=== PATIENT | male | born 1955 | race Caucasian/White ===

== ENCOUNTER 2019-08-22 07:32 | Outpatient (RCR) | payer MEDICARE, MEDICAID, SELFPAY | END 2019-08-25 23:59 | disposition home or self-care (01) | LOC: ANHWOC 07:32 | PROVIDERS: PCP Internal Medicine; Visit Provider Internal Medicine | DX: Z43.3 Encounter for attention to colostomy (principal) | CPT/HCPCS: 99212; G0463 ==

== ENCOUNTER 2019-10-21 13:40 | Emergency (ER) | payer MEDICARE, MEDICAID, SELFPAY ==
--- NOTE | ~2019-10-21 | XR_ITS ---
EXAMINATION: XR abdomen/kub 1V INDICATION: Constipation TECHNIQUE: Supine view the abdomen is obtained. COMPARISON: 02/16/2019 FINDINGS: There are multiple gas-filled loops of nondistended bowel. There is a normal volume of colo alison stool. Phleboliths are noted in the pelvis. There are prostatic calcifications. Mild hip osteoart hritis is noted. IMPRESSION: 1. Normal volume of colonic stool. Reviewed, dictated and finalized at location B.
[2019-10-21 14:04] VITALS: BP 129/77; PULSE 80; RESP 18; TEMP 36.5; O2SAT 100
[2019-10-21 14:13] LABS: Basophils Percent Auto 0.3 % (0.2-1.2); Eosinophils Absolute Auto 0.1 K/mm3 (0-0.3); Eosinophils Percent Auto 0.7 % (0-4.4); Hematocrit 38.7 % (42.0-52.0); Hemoglobin 13.1 g/dL (14.0-18.0); Immature Granulocyte Absolute 0.02 K/mm3 (0.00-0.031); Immature Granulocyte Percent A 0.3 % (0-0.5); Lymphocytes Percent Auto 21.6 % (18.3-44.2); Mean Corpuscular HGB Conc 33.9 g/dl (32-36); Mean Corpuscular Hemoglobin 30.5 pg (26-34); Mean Platelet Volume 9.7 fl (7.4-10.4); Monocytes Absolute Auto 0.6 K/mm3 (0.1-0.6); Monocytes Percent Auto 8.1 % (2.6-8.5); Neutrophils Absolute Auto 4.8 K/mm3 (1.3-6.7); Platelet Count Result 291 k/mm3 (150-375); White Blood Count 6.9 K/mm3 (4.5-10.0)
[2019-10-21 14:25] LABS: Alanine Aminotransferase 17 U/L (4-50); Albumin Level 4.3 g/dL (3.5-5.1); Alkaline Phosphatase 112 U/L (38-126); Aspartate Amino Transferase 30 U/L (17-59); Bilirubin,Total 0.4 mg/dL (0.2-1.3); Blood Urea Nitrogen 12 mg/dL (9-20); Calcium 9.3 mg/dL (8.4-10.2); Carbon Dioxide 30 mmol/L (22-30); Chloride 104 mmol/L (98-107); Estimated Glomerular Filt Rate > 60; Glucose 101 mg/dL (75-110); Lipase 51 U/L (23-300); Potassium 3.6 mmol/L (3.4-5.0); Sodium 138 mmol/L (137-145)
[2019-10-21 14:48] LABS: Add Urine Microscopic? YES; Appearance Urine Clear (Clear); Bilirubin Urine Negative (Negative); Blood Urine Negative (Negative); Calcium Oxalate Crystals Urine Present /hpf; Color Urine Yellow (Yellow); Glucose Urine UA Negative (Negative); Ketones Urine Negative (Negative); Leukocyte Esterase Ur Negative LEU/UL (Negative); Mucus Urine Heavy /lpf; Nitrate Urine Negative (Negative); Protein Urine 1+ mg/dL (Negative); Specific Grav Ur 1.027 (1.001-1.035); Squamous Epithelial Cell Urine Rare /hpf (Few); Urobilinogen Urine Negative mg/dL (<2.0); WBC Urine 0-3 /hpf
[2019-10-21 16:17] VITALS: BP 141/98; PULSE 72; RESP 17; O2SAT 97
--- NOTE | 2019-10-21 16:19 | ED.ABDPAIN ---
HPI - Abdominal Pain General Chief Complaint: Abdominal Pain Stated Complaint: abdominal pain/vomiting/constipated Time Seen by Provider: 10/21/19 15:56 Source: patient Mode of arrival: ambulatory Limitations: other (poor historian) History of Present Illness HPI narrative: This is a 64 year old male that presents to the ER for constipation today. Reports he was seen by the ostomy/wound center today and was having hard rocks come out of his ostomy. Reports having some nausea at night. Denies fever, abdominal pain, or vomiting. Related Data Home Medications Medication Instructions Recorded Confirmed fluoxetine 20 mg PO DAILY 05/20/19 07/12/19 tamsulosin [Flomax] 0.4 mg PO DAILY 05/20/19 07/12/19 cyanocobalamin (vitamin B-12) See Rx Instructions .ROUTE .COMPLEX 07/12/19 07/12/19 1,000 mcg/mL injection syringe lorazepam 1 mg tablet 1 mg PO DAILY PRN tablet 07/12/19 07/12/19 simvastatin 10 mg tablet 10 mg PO .hs tablet 07/12/19 07/12/19 Allergies Allergy/AdvReac Type Severity Reaction Status Date / Time Penicillins Allergy Unknown Verified 01/11/18 16:11 Review of Systems Review of Systems: Narrative: CONSTITUTIONAL: Denies fever GASTROINTESTINAL: Denies abdominal pain, nausea, vomiting All systems reviewed & are unremarkable except as noted in HPI and below PMFSH Past Medical History Medical History (Updated 10/21/19 @ 16:28 by Alem Huitron PA-C) Anemia B12 deficiency Carpal tunnel syndrome Colostomy present Hypercholesterolemia Tongue ulceration Vitamin deficiency Surgical History Surgical History (Updated 07/12/19 @ 16:06 by Loc Graham DO) Status post colostomy Family History Family History (Updated 01/12/18 @ 14:59 by DOCTOR UNKNOWN) Father Family history of premature coronary heart disease Mother Cerebrovascular accident Social History Social History Smoking status: Never smoker Alcohol intake: never Exam Narrative: Exam Narrative: GENERAL: Well-appearing, well-nourished, and in no acute distress. HEAD: Normocephalic, atraumatic. EYES: EOMI. CHEST: Clear to auscultation. No respiratory distress. No wheezes rales or rhonchi HEART: Regular rate and rhythm. No murmur heard. Normal peripheral pulses. ABDOMEN: Soft, nontender, nondistended, normal active bowel sounds. Ostomy moist, oval and red. No surrounding skin changes to suggest cellulitis. No output in ostomy at present EXTREMITIES: Normal range of motion. No edema. SKIN: Warm, dry, no rash. NEURO: No focal deficits. Alert and oriented x3. PSYCH: Normal mood and affect Course Vital Signs Vital signs: Vital Signs Temperature 97.7 F 10/21/19 14:04 Pulse Rate 80 10/21/19 14:04 Respiratory Rate 18 10/21/19 14:04 Blood Pressure 129/77 10/21/19 14:04 Pulse Oximetry 100 10/21/19 14:04 Temperature 97.7 F 10/21/19 14:04 Pulse Rate 72 10/21/19 16:17 Respiratory Rate 17 10/21/19 16:17 Blood Pressure 141/98 H 10/21/19 16:17 Pulse Oximetry 97 10/21/19 16:17 MDM - Abdominal Pain MDM Narrative Medical decision making narrative: Patient presents the emergency department for constipation. He has a history of colostomy and was having hard stools. Patient is afebrile and nontoxic-appearing. His abdomen is soft and nontender. No leukocytosis on CBC. Metabolic panel without acute changes. X-ray of the abdomen shows a normal volume of colonic stool. Patient was instructed to take a stool softener daily and if needed he can add on MiraLAX. He is to follow-up with his primary care doctor. He was given warnings to return the ER Lab Data Attestation: I reviewed the patient's lab results. Result diagrams: 10/21/19 14:08 10/21/19 14:08 Labs: Lab Results 10/21/19 10/21/19 10/21/19 Range/Units 14:08 14:08 14:24 WBC 6.9 (4.5-10.0) K/mm3 RBC 4.30 L (4.6-6.20) M/mm3 Hgb 13.1 L (14.0-18.0) g/dL Hct 38.7 L (42.0-52.0) %
== END 2019-10-21 16:45 | disposition home or self-care (01) ==
LOC: ANHED 16:38
PROVIDERS: Emergency Medicine; Emergency Provider Emergency Medicine; PCP Internal Medicine
DX: K59.00 Constipation, unspecified (principal); E78.00 Pure hypercholesterolemia, unspecified; E53.8 Deficiency of other specified B group vitamins; Z93.3 Colostomy status; D64.9 Anemia, unspecified
CPT/HCPCS: 36415; 74018; 80053; 81001; 83690; 85025; 99212; 99283; G0463

== ENCOUNTER 2019-11-21 07:19 | Outpatient (RCR) | payer MEDICARE, MEDICAID, SELFPAY | END 2019-11-24 23:59 | disposition home or self-care (01) | LOC: ANHWOC 07:19 | PROVIDERS: PCP Internal Medicine; Referring Provider Surgery; Visit Provider Internal Medicine | DX: Z93.3 Colostomy status (principal) | CPT/HCPCS: 99212; G0463 ==

== ENCOUNTER 2020-02-20 07:15 | Outpatient (RCR) | payer MEDICARE, MEDICAID, SELFPAY | END 2020-02-23 23:59 | disposition home or self-care (01) | LOC: ANHWOC 07:15 | PROVIDERS: PCP Internal Medicine; Visit Provider Internal Medicine | DX: Z93.3 Colostomy status (principal) | CPT/HCPCS: 99212; G0463 ==

== ENCOUNTER 2020-02-24 13:37 | Outpatient (CLI) | payer MEDICARE, MEDICAID, SELFPAY ==
--- NOTE | ~2020-02-24 | XR_ITS ---
EXAMINATION: XR shoulder LT min 2V DATE: 02/24/2020 13:58 INDICATION: Localized swelling, mass and lump, left upper limb. TECHNIQUE: 5 views of left shoulder were obtained. COMPARISON: None. FINDINGS: Bone alignment is normal. No fracture. There is mild osteoarthritis of glenohumeral joint a nd moderate osteoarthritis of acromioclavicular joint. Subacromial spurring is noted. IMPRESSION: 1. Polyarticular osteoarthritis. Reviewed, dictated and finalized at location A.
== END 2020-02-24 13:38 | disposition home or self-care (01) ==
PROVIDERS: PCP Internal Medicine; Visit Provider Internal Medicine
DX: R22.32 Localized swelling, mass and lump, left upper limb (principal); M19.012 Primary osteoarthritis, left shoulder
CPT/HCPCS: 73030

== ENCOUNTER 2020-05-21 07:37 | Outpatient (RCR) | payer MEDICARE, MEDICAID, SELFPAY | END 2020-05-24 23:59 | disposition home or self-care (01) | LOC: ANHWOC 07:37 | PROVIDERS: PCP Internal Medicine; Visit Provider Internal Medicine | DX: Z43.3 Encounter for attention to colostomy (principal) | CPT/HCPCS: 99212; G0463 ==

== ENCOUNTER 2020-08-20 07:34 | Outpatient (RCR) | payer MEDICARE, MEDICAID, SELFPAY | END 2020-08-23 23:59 | disposition home or self-care (01) | LOC: ANHWOC 07:34 | PROVIDERS: PCP Internal Medicine; Visit Provider Internal Medicine | DX: Z43.3 Encounter for attention to colostomy (principal) | CPT/HCPCS: 99212; G0463 ==

== ENCOUNTER 2020-11-19 07:31 | Outpatient (RCR) | payer MEDICARE, MEDICAID, SELFPAY | END 2020-11-22 23:59 | disposition home or self-care (01) | LOC: ANHWOC 07:31 | PROVIDERS: Family Provider Internal Medicine; PCP Internal Medicine; Visit Provider Internal Medicine | DX: Z43.3 Encounter for attention to colostomy (principal) | CPT/HCPCS: 99212; G0463 ==

== ENCOUNTER 2021-02-18 07:25 | Outpatient (RCR) | payer MEDICARE, MEDICAID, SELFPAY | END 2021-02-21 23:59 | disposition home or self-care (01) | LOC: ANHWOC 07:25 | PROVIDERS: Family Provider Internal Medicine; PCP Internal Medicine; Visit Provider Internal Medicine | DX: Z43.3 Encounter for attention to colostomy (principal) | CPT/HCPCS: 99212; G0463 ==

== ENCOUNTER 2021-05-20 07:29 | Outpatient (RCR) | payer MEDICARE, OTHER, MEDICAID, SELFPAY ==
--- NOTE | 2021-04-29 13:25 | PCWOUND ---
Wocn NOte placed call to sister and brother in law to verify plans to acquire future supplies and to let them know [facility] is discontinuing the current supplies patient prefers.
== END 2021-05-23 23:59 | disposition home or self-care (01) ==
LOC: ANHWOC 07:29
PROVIDERS: Family Provider Internal Medicine; PCP Internal Medicine; Visit Provider Internal Medicine
DX: Z43.3 Encounter for attention to colostomy (principal)
CPT/HCPCS: 99212; G0463

== ENCOUNTER 2021-08-19 07:45 | Outpatient (RCR) | payer OTHER, SELFPAY | END 2021-08-22 23:59 | disposition home or self-care (01) | LOC: ANHWOC 07:45 | PROVIDERS: Family Provider Internal Medicine; PCP Internal Medicine; Visit Provider Internal Medicine | DX: Z43.3 Encounter for attention to colostomy (principal) | CPT/HCPCS: 99212; G0463 ==

== ENCOUNTER 2021-11-18 07:35 | Outpatient (RCR) | payer OTHER, SELFPAY | END 2021-11-21 23:59 | disposition home or self-care (01) | LOC: ANHWOC 07:35 | PROVIDERS: Family Provider Internal Medicine; PCP Internal Medicine; Visit Provider Internal Medicine | DX: Z43.3 Encounter for attention to colostomy (principal) | CPT/HCPCS: 99212; G0463 ==

== ENCOUNTER 2022-02-17 13:00 | Outpatient (RCR) | payer OTHER, SELFPAY | END 2022-02-20 23:59 | disposition home or self-care (01) | LOC: ANHWOC 13:00 | PROVIDERS: Family Provider Internal Medicine; PCP Internal Medicine; Visit Provider Internal Medicine | DX: Z43.3 Encounter for attention to colostomy (principal) | CPT/HCPCS: 99212; G0463 ==

== ENCOUNTER 2022-02-18 14:11 | Outpatient (CLI) | payer OTHER, SELFPAY ==
[2022-02-18 18:40] LABS: Basophils Percent Auto 0.4 % (0.2-1.2); Eosinophils Absolute Auto 0.1 K/mm3 (0-0.3); Eosinophils Percent Auto 0.9 % (0-4.4); Hematocrit 42.2 % (42.0-52.0); Hemoglobin 13.8 g/dL (14.0-18.0); Immature Granulocyte Absolute 0.02 K/mm3 (0.00-0.031); Immature Granulocyte Percent A 0.3 % (0-0.5); Lymphocytes Absolute Auto 1.64 K/mm3 (0.9-3.2); Lymphocytes Percent Auto 23.3 % (18.3-44.2); Mean Corpuscular HGB Conc 32.7 g/dl (32-36); Mean Corpuscular Hemoglobin 29.7 pg (26-34); Mean Corpuscular Volume 90.9 fl (80-100); Mean Platelet Volume 9.9 fl (7.4-10.4); Monocytes Absolute Auto 0.7 K/mm3 (0.1-0.6); Monocytes Percent Auto 9.7 % (2.6-8.5); Neutrophils Absolute Auto 4.6 K/mm3 (1.3-6.7); Neutrophils Percent Auto 65.4 % (45.5-73.1); Platelet Count Result 317 k/mm3 (150-375); Red Blood Count 4.64 M/mm3 (4.6-6.20); Red Cell Distribution Width 13.3 % (11.5-14.5)
[2022-02-18 21:13] LABS: Alanine Aminotransferase 14 U/L (6-50); Albumin Level 4.1 g/dL (3.5-5.1); Alkaline Phosphatase 151 U/L (38-126); Anion Gap 14 mmol/L (8-16); Aspartate Amino Transferase 22 U/L (17-59); Bilirubin,Total 0.4 mg/dL (0.2-1.3); Blood Urea Nitrogen 16 mg/dL (9-20); Calcium 9.2 mg/dL (8.4-10.2); Carbon Dioxide 23 mmol/L (22-30); Chloride 105 mmol/L (98-107); Cholesterol 200 mg/dL (0-200); Estimated Glomerular Filt Rate > 60; Glucose 98 mg/dL (65-110); HDL Direct 55 mg/dL; Potassium 3.7 mmol/L (3.4-5.0); Sodium 142 mmol/L (137-145); Triglycerides 72 mg/dL (<150)
[2022-02-18 21:24] LABS: LDL Cholesterol Direct 111 mg/dL
[2022-02-18 21:43] LABS: Prostate Specific Antigen 0.3 ng/mL (< OR = 4.0)
[2022-02-18 22:22] LABS: Folic Acid 9.5 ng/mL (2.76->20); Vitamin B12 > 1000.0 pg/mL (239-931)
== END 2022-02-18 14:12 | disposition home or self-care (01) ==
LOC: ANHGOSHLAB 14:12
PROVIDERS: PCP Internal Medicine; Visit Provider Internal Medicine
DX: Z12.5 Encounter for screening for malignant neoplasm of prostate (principal); D64.9 Anemia, unspecified; E53.8 Deficiency of other specified B group vitamins; E78.00 Pure hypercholesterolemia, unspecified; Z13.29 Encounter for screening for other suspected endocrine disorder; Z13.0 Encounter for screening for diseases of the blood and blood-forming organs and certain disorders involving the immune mechanism; Z13.228 Encounter for screening for other metabolic disorders; F41.9 Anxiety disorder, unspecified
CPT/HCPCS: 36415; 80053; 80061; 82607; 82728; 82746; 84153; 84443; 85025; G0103

== ENCOUNTER 2022-03-27 13:33 | Outpatient (CLI) | payer OTHER, SELFPAY ==
[2022-03-27 19:35] LABS: Basophils Percent Auto 0.4 % (0.2-1.2); Eosinophils Absolute Auto 0.1 K/mm3 (0-0.3); Eosinophils Percent Auto 1.8 % (0-4.4); Hematocrit 42.3 % (42.0-52.0); Hemoglobin 14.2 g/dL (14.0-18.0); Immature Granulocyte Absolute 0.03 K/mm3 (0.00-0.031); Immature Granulocyte Percent A 0.4 % (0-0.5); Lymphocytes Absolute Auto 1.58 K/mm3 (0.9-3.2); Lymphocytes Percent Auto 21.6 % (18.3-44.2); Mean Corpuscular HGB Conc 33.6 g/dl (32-36); Mean Corpuscular Volume 89.2 fl (80-100); Mean Platelet Volume 9.7 fl (7.4-10.4); Monocytes Absolute Auto 0.7 K/mm3 (0.1-0.6); Monocytes Percent Auto 8.9 % (2.6-8.5); Neutrophils Absolute Auto 4.9 K/mm3 (1.3-6.7); Neutrophils Percent Auto 66.9 % (45.5-73.1); Platelet Count Result 340 k/mm3 (150-375); Red Blood Count 4.74 M/mm3 (4.6-6.20); Red Cell Distribution Width 13.5 % (11.5-14.5); White Blood Count 7.3 K/mm3 (4.5-10.0)
[2022-03-29 17:32] LABS: GGT 24 U/L (3-70)
[2022-03-30 04:59] LABS: Alkaline Phosphatase 160 U/L (35-144); Macrohepatic Isoenzymes 0 % (<=0)
== END 2022-03-27 13:34 | disposition home or self-care (01) ==
LOC: ANHGOSHLAB 13:35
PROVIDERS: PCP Internal Medicine; Visit Provider Internal Medicine
DX: R74.8 Abnormal levels of other serum enzymes (principal); D64.9 Anemia, unspecified
CPT/HCPCS: 36415; 82728; 82977; 84075; 84080; 85025

== ENCOUNTER 2022-04-10 11:09 | Outpatient (CLI) | payer OTHER, SELFPAY ==
--- NOTE | ~2022-04-10 | US_ITS ---
EXAMINATION: US abdomen limited DATE: 04/10/2022 11:51 INDICATION: Abnormal levels of other serum enzymes TECHNIQUE: Multiple grayscale and Doppler ultrasound images of the abdomen were obtained. COMPARISON: None available FINDINGS: Bowel gas obscures visualization of the pancreas. The liver is normal with normal echogenic ity and echotexture. No surface nodularity. Normal hepatopetal flow in the main portal vein. The gall bladder is normal with no abnormal wall thickening, pericholecystic fluid or stones. The normal commo n bile duct measures 4 mm. There was no sonographic Chacon sign. IMPRESSION: 1. No sonographic correlate for the patient's symptoms. Reviewed, dictated and finalized at location B.
== END 2022-04-10 11:10 | disposition home or self-care (01) ==
PROVIDERS: PCP Internal Medicine; Visit Provider Internal Medicine
DX: R74.8 Abnormal levels of other serum enzymes (principal)
CPT/HCPCS: 76705

== ENCOUNTER 2022-05-19 07:27 | Outpatient (RCR) | payer OTHER, SELFPAY | END 2022-05-22 23:59 | disposition home or self-care (01) | LOC: ANHWOC 07:27 | PROVIDERS: Family Provider Internal Medicine; PCP Internal Medicine; Visit Provider Internal Medicine | DX: Z43.3 Encounter for attention to colostomy (principal) | CPT/HCPCS: 99212; G0463 ==

== ENCOUNTER 2022-08-18 08:09 | Outpatient (RCR) | payer OTHER, SELFPAY | END 2022-08-21 23:59 | disposition home or self-care (01) | LOC: ANHWOC 08:09 | PROVIDERS: PCP Internal Medicine; Visit Provider Internal Medicine | DX: Z93.3 Colostomy status (principal) | CPT/HCPCS: 99212; G0463 ==

== ENCOUNTER 2022-08-19 15:12 | Outpatient (CLI) | payer OTHER, SELFPAY ==
[2022-08-19 20:23] LABS: Alanine Aminotransferase 25 U/L (6-50); Albumin Level 3.9 g/dL (3.5-5.1); Alkaline Phosphatase 149 U/L (38-126); Anion Gap 7 mmol/L (8-16); Aspartate Amino Transferase 32 U/L (17-59); Bilirubin,Total 0.5 mg/dL (0.2-1.3); Blood Urea Nitrogen 16 mg/dL (9-20); Calcium 8.5 mg/dL (8.4-10.2); Carbon Dioxide 28 mmol/L (22-30); Chloride 105 mmol/L (98-107); Estimated Glomerular Filt Rate > 60; Glucose 99 mg/dL (65-110); Potassium 3.4 mmol/L (3.4-5.0); Sodium 140 mmol/L (137-145)
[2022-08-19 20:57] LABS: Prostate Specific Antigen 0.3 ng/mL (< OR = 4.0)
[2022-08-19 21:12] LABS: Hematocrit 41.7 % (42.0-52.0); Hemoglobin 13.9 g/dL (14.0-18.0); Mean Corpuscular HGB Conc 33.3 g/dl (32-36); Mean Corpuscular Volume 90.1 fl (80-100); Platelet Count Result 330 k/mm3 (150-375); Red Blood Count 4.63 M/mm3 (4.6-6.20); Red Cell Distribution Width 13.2 % (11.5-14.5); White Blood Count 6.9 K/mm3 (4.5-10.0)
== END 2022-08-19 15:13 | disposition home or self-care (01) ==
LOC: ANHGOSHLAB 15:13
PROVIDERS: PCP Internal Medicine; Visit Provider Internal Medicine
DX: D64.9 Anemia, unspecified (principal); R74.8 Abnormal levels of other serum enzymes; Z12.5 Encounter for screening for malignant neoplasm of prostate
CPT/HCPCS: 36415; 80053; 82728; 84153; 85027; G0103

== ENCOUNTER 2022-11-17 07:25 | Outpatient (RCR) | payer OTHER, SELFPAY | END 2022-11-20 23:59 | disposition home or self-care (01) | LOC: ANHWOC 07:25 | PROVIDERS: PCP Internal Medicine; Visit Provider Internal Medicine | DX: Z93.3 Colostomy status (principal) | CPT/HCPCS: 99212; G0463 ==

== ENCOUNTER 2023-02-16 07:26 | Outpatient (RCR) | payer OTHER, SELFPAY | END 2023-02-19 23:59 | disposition home or self-care (01) | LOC: ANHWOC 07:26 | PROVIDERS: PCP Internal Medicine; Visit Provider Internal Medicine | DX: Z93.3 Colostomy status (principal) | CPT/HCPCS: 99212; G0463 ==

== ENCOUNTER 2023-03-31 14:05 | Outpatient (CLI) | payer OTHER, SELFPAY ==
[2023-03-31 19:01] LABS: Basophils Percent Auto 0.4 % (0.2-1.2); Eosinophils Absolute Auto 0.1 K/mm3 (0-0.3); Eosinophils Percent Auto 1.2 % (0-4.4); Hematocrit 41.8 % (42.0-52.0); Hemoglobin 13.9 g/dL (14.0-18.0); Immature Granulocyte Absolute 0.02 K/mm3 (0.00-0.031); Immature Granulocyte Percent A 0.3 % (0-0.5); Lymphocytes Absolute Auto 1.64 K/mm3 (0.9-3.2); Lymphocytes Percent Auto 21.5 % (18.3-44.2); Mean Corpuscular HGB Conc 33.3 g/dl (32-36); Mean Corpuscular Hemoglobin 29.7 pg (26-34); Mean Corpuscular Volume 89.3 fl (80-100); Mean Platelet Volume 9.8 fl (7.4-10.4); Monocytes Absolute Auto 0.7 K/mm3 (0.1-0.6); Monocytes Percent Auto 8.6 % (2.6-8.5); Neutrophils Absolute Auto 5.2 K/mm3 (1.3-6.7); Platelet Count Result 332 k/mm3 (150-375); Red Blood Count 4.68 M/mm3 (4.6-6.20); Red Cell Distribution Width 13.2 % (11.5-14.5); White Blood Count 7.6 K/mm3 (4.5-10.0)
[2023-03-31 19:30] LABS: Alanine Aminotransferase 15 U/L (6-50); Albumin Level 4.2 g/dL (3.5-5.1); Alkaline Phosphatase 134 U/L (38-126); Anion Gap 6 mmol/L (8-16); Aspartate Amino Transferase 36 U/L (17-59); Bilirubin,Total 0.4 mg/dL (0.2-1.3); Blood Urea Nitrogen 12 mg/dL (9-20); Calcium 8.8 mg/dL (8.4-10.2); Carbon Dioxide 30 mmol/L (22-30); Chloride 102 mmol/L (98-107); Cholesterol 201 mg/dL (0-200); Estimated Glomerular Filt Rate > 60; Glucose 94 mg/dL (65-110); HDL Direct 42 mg/dL; Potassium 3.2 mmol/L (3.4-5.0); Sodium 138 mmol/L (137-145); Triglycerides 129 mg/dL (<150)
[2023-03-31 19:42] LABS: LDL Cholesterol Direct 116 mg/dL
[2023-03-31 20:34] LABS: Folic Acid 6.4 ng/mL (2.76->20)
== END 2023-03-31 14:06 | disposition home or self-care (01) ==
LOC: ANHGOSHLAB 14:06
PROVIDERS: PCP Internal Medicine; Visit Provider Internal Medicine
DX: D64.9 Anemia, unspecified (principal); E78.00 Pure hypercholesterolemia, unspecified; E53.8 Deficiency of other specified B group vitamins
CPT/HCPCS: 36415; 80053; 80061; 82607; 82746; 85025

== ENCOUNTER 2023-05-18 07:17 | Outpatient (RCR) | payer OTHER, SELFPAY | END 2023-05-21 23:59 | disposition home or self-care (01) | LOC: ANHWOC 07:17 | PROVIDERS: PCP Internal Medicine; Visit Provider Internal Medicine | DX: Z93.3 Colostomy status (principal); D64.9 Anemia, unspecified; E78.00 Pure hypercholesterolemia, unspecified; E53.8 Deficiency of other specified B group vitamins | CPT/HCPCS: 36415; 80053; 80061; 82607; 82746; 85025; 99212; A9270; G0463 ==

== ENCOUNTER 2023-06-30 13:12 | Outpatient (CLI) | payer OTHER, SELFPAY ==
[2023-06-30 19:46] LABS: Anion Gap 8 mmol/L (8-16); Blood Urea Nitrogen 19 mg/dL (9-20); Carbon Dioxide 27 mmol/L (22-30); Chloride 105 mmol/L (98-107); Estimated Glomerular Filt Rate > 60; Glucose 102 mg/dL (65-110); Magnesium 1.9 mg/dL (1.6-2.3); Potassium 3.5 mmol/L (3.4-5.0); Sodium 140 mmol/L (137-145)
== END 2023-06-30 13:13 | disposition home or self-care (01) ==
LOC: ANHGOSHLAB 13:14
PROVIDERS: PCP Internal Medicine; Visit Provider Internal Medicine
DX: E87.6 Hypokalemia (principal)
CPT/HCPCS: 36415; 80048; 83735

== ENCOUNTER 2023-08-18 07:06 | Outpatient (RCR) | payer OTHER, SELFPAY | END 2023-08-20 23:59 | disposition home or self-care (01) | LOC: ANHWOC 07:06 | PROVIDERS: PCP Internal Medicine; Visit Provider Internal Medicine | DX: Z93.3 Colostomy status (principal) | CPT/HCPCS: 99213; G0463 ==

== ENCOUNTER 2023-08-21 13:10 | Emergency (ER) | payer OTHER, SELFPAY ==
[2023-08-21 13:12] VITALS: BP 138/83; PULSE 97; RESP 18; TEMP 36.6; O2SAT 97
--- NOTE | 2023-08-21 13:29 | ED.GENADULT ---
HPI - General Adult General Chief complaint: Unspecified Stated complaint: shakes, sweats, dizzy, urinary sx Time Seen by Provider: 08/21/23 13:27 Source: patient Mode of arrival: ambulatory Limitations: no limitations History of Present Illness HPI narrative: Idris is a 68-year-old male patient presenting to the ER today for complaints of shakes, sweats, dizziness, and urinary symptoms. He reports he is having burning with difficulty urinating this started Thursday night. Denies any fever or chills. Related Data Home Medications Medication Instructions Recorded Confirmed cyanocobalamin (vitamin B-12) See Rx Instructions .Route .COMPLEX 07/12/19 06/23/23 1,000 mcg/mL injection syringe Allergies Allergy/AdvReac Type Severity Reaction Status Date / Time Penicillins Allergy Severe Anaphylactic Verified 08/21/23 13:11 Shock Review of Systems Review of Systems: Pertinent positives per HPI. Patient denies any fever, chills, rash, headache, visual changes, dizziness, cough, runny nose, sore throat, shortness of breath, chest pain, palpitations, nausea, vomiting, diarrhea, constipation, abdominal pain, or any urinary issues. 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 There is no relevant family history pertinent to the patient complaint. Exam Narrative: General: Well-developed, well nourished, in no apparent distress Head: Normocephalic, atraumatic Eyes: Pupils equally round and reactive to light bilaterally, EOM intact, sclera and conjunctive clear, no discharge, lids normal Ears: TMs intact and clear, ear canals clear, no drainage, grossly hearing normal. Nose: Nares patent, no discharge, no inflammation, no sinus tenderness. Mouth: Oropharynx without lesions or masses, good dentition, MMM. Tongue midline, even rise and fall of uvula Neck: Supple, trachea midline, no enlargement of anterior or posterior cervical nodes, no thyroid masses or goiter palpable. Cardio: Regular rate and rhythm, s1 and s2 normal, no murmur appreciated. Resp: Clear to auscultation bilaterally anteriorly and posteriorly, no rhonchi, rales, wheezing or rubs Neuro: Alert and oriented x4 with normal speech for patient, no focal deficits, cranial nerves I through XII intact, muscle strength 5 out of 5, sensation intact bilaterally Abdomen: Soft, pliable, bowel sounds present in all quadrants, tender to palpation over the suprapubic bladder, no organomegly, no CVAT tenderness. Course Course Emergency Course: Portions of this record may have been created with voice recognition software. Vital Signs Vital signs: Vital Signs Temperature 36.6 C 08/21/23 13:12 Pulse Rate 97 08/21/23 13:12 Respiratory Rate 18 08/21/23 13:12 Blood Pressure 138/83 08/21/23 13:12 Pulse Oximetry 97 08/21/23 13:12 Oxygen Delivery Room Air 08/21/23 13:12 Temperature 36.6 C 08/21/23 13:12 Pulse Rate 97 08/21/23 13:12
--- NOTE | 2023-08-21 13:30 | ECG_ITS ---
Measurements Intervals [place] Rate: 77 P: 43 WV: 154 QRS: -24 QRSD: 98 T: 58 QT: 378 QTc: 428 Interpretive Statements SINUS RHYTHM LEFT ATRIAL ENLARGEMENT POSSIBLE LEFT VENTRICULAR HYPERTROPHY [VOLTAGE CRITERIA PLUS LAE OR QRS WIDENING] ANTEROSEPTAL INFARCT, AGE INDETERMINATE ABNORMAL ECG NO PREVIOUS ECG AVAILABLE FOR COMPARISON Electronically Signed On 08-21-2023 16:56:59 DIRECTOR OF DATABASE MARKETING by Brent Davis D.O.
[2023-08-21 13:49] LABS: Basophils Percent Auto 0.4 % (0.2-1.2); Eosinophils Percent Auto 0.4 % (0-4.4); Hematocrit 38.4 % (42.0-52.0); Immature Granulocyte Absolute 0.05 K/mm3 (0.00-0.031); Immature Granulocyte Percent A 0.5 % (0-0.5); Lymphocytes Absolute Auto 1.56 K/mm3 (0.9-3.2); Lymphocytes Percent Auto 14.6 % (18.3-44.2); Mean Corpuscular HGB Conc 33.9 g/dl (32-36); Mean Corpuscular Hemoglobin 30.2 pg (26-34); Mean Corpuscular Volume 89.1 fl (80-100); Mean Platelet Volume 9.4 fl (7.4-10.4); Monocytes Absolute Auto 0.8 K/mm3 (0.1-0.6); Monocytes Percent Auto 7.5 % (2.6-8.5); Neutrophils Absolute Auto 8.2 K/mm3 (1.3-6.7); Neutrophils Percent Auto 76.6 % (45.5-73.1); Platelet Count Result 314 k/mm3 (150-375); Red Blood Count 4.31 M/mm3 (4.6-6.20); Red Cell Distribution Width 12.9 % (11.5-14.5); White Blood Count 10.7 K/mm3 (4.5-10.0)
[2023-08-21 13:59] LABS: Appearance Urine Turbid (Clear); Bacteria Urine 1+ /hpf; Bilirubin Urine Negative (Negative); Blood Urine 3+ (Negative); Color Urine Yellow (Yellow); Glucose Urine UA Negative (Negative); Ketones Urine Trace mg/dL (Negative); Leukocyte Esterase Ur 3+ LEU/UL (Negative); Nitrate Urine Negative (Negative); Protein Urine 3+ mg/dL (Negative); RBC Urine 51-100 /hpf (0-2); Specific Grav Ur 1.027 (1.001-1.035); Squamous Epithelial Cell Urine Occasional /hpf (Few); WBC Urine >100 /hpf; pH Urine 5.5 (5.0-9.0)
[2023-08-21 14:04] LABS: Alanine Aminotransferase 36 U/L (6-50); Albumin Level 4.1 g/dL (3.5-5.1); Alkaline Phosphatase 149 U/L (38-126); Anion Gap 7 mmol/L (8-16); Aspartate Amino Transferase 45 U/L (17-59); Bilirubin,Total 0.5 mg/dL (0.2-1.3); Blood Urea Nitrogen 23 mg/dL (9-20); Carbon Dioxide 26 mmol/L (22-30); Chloride 109 mmol/L (98-107); Estimated CRCL calculation 83 ml/min; Estimated Glomerular Filt Rate > 60; Glucose 112 mg/dL (65-110); Potassium 3.5 mmol/L (3.4-5.0); Sodium 142 mmol/L (137-145)
[2023-08-21 14:05] LABS: Lactic Acid Reflex 1.4 mmol/L (0.7-2.0)
[2023-08-21 14:14] LABS: Add Urine Microscopic? YES
[2023-08-21 14:25] LABS: Influenza A QL RT-PCR Negative (Negative); Influenza B QL RT-PCR Negative (Negative); RSV RNA, RT-PCR Negative (Negative); SARS-CoV-2 RNA PCR Negative (Negative)
== END 2023-08-21 16:02 | disposition home or self-care (01) ==
PROVIDERS: Emergency Provider Nurse Practitioner Family; PCP Internal Medicine
DX: N30.01 Acute cystitis with hematuria (principal); Z20.822 Contact with and (suspected) exposure to COVID-19; I10 Essential (primary) hypertension; E78.00 Pure hypercholesterolemia, unspecified; E53.8 Deficiency of other specified B group vitamins; D64.9 Anemia, unspecified; G93.89 Other specified disorders of brain; F07.89 Other personality and behavioral disorders due to known physiological condition; Z93.3 Colostomy status; R94.31 Abnormal electrocardiogram [ECG] [EKG]
CPT/HCPCS: 36415; 80053; 81001; 83605; 85025; 87077; 87086; 87186; 87637; 93005; 99213; 99283; G0463

== ENCOUNTER 2023-09-29 14:32 | Outpatient (CLI) | payer OTHER, SELFPAY ==
[2023-09-29 19:23] LABS: Appearance Urine Clear (Clear); Bilirubin Urine Negative (Negative); Blood Urine Negative (Negative); Color Urine Yellow (Yellow); Glucose Urine UA Negative (Negative); Ketones Urine Negative (Negative); Leukocyte Esterase Ur Negative LEU/UL (NEGATIVE); Nitrate Urine Negative (Negative); Protein Urine Negative (Negative); Urobilinogen Urine 0.2 mg/dL (<2.0)
[2023-09-29 19:44] LABS: Add Urine Microscopic? NO
== END 2023-09-29 14:33 | disposition home or self-care (01) ==
LOC: ANHGOSHLAB 14:33
PROVIDERS: PCP Internal Medicine; Visit Provider Internal Medicine
DX: R31.9 Hematuria, unspecified (principal)
CPT/HCPCS: 81003

== ENCOUNTER 2023-11-16 07:26 | Outpatient (RCR) | payer OTHER, SELFPAY | END 2023-11-19 23:59 | disposition home or self-care (01) | LOC: ANHWOC 07:26 | PROVIDERS: PCP Internal Medicine; Visit Provider Internal Medicine | DX: Z93.3 Colostomy status (principal) | CPT/HCPCS: 99213; G0463 ==

== ENCOUNTER 2024-01-05 15:16 | Outpatient (CLI) | payer OTHER, SELFPAY ==
[2024-01-05 19:15] LABS: Alanine Aminotransferase 26 U/L (6-50); Albumin Level 4.2 g/dL (3.5-5.1); Alkaline Phosphatase 143 U/L (38-126); Anion Gap 7 mmol/L (4-12); Aspartate Amino Transferase 40 U/L (17-59); Bilirubin,Total 0.5 mg/dL (0.2-1.3); Blood Urea Nitrogen 17 mg/dL (9-20); Calcium 8.9 mg/dL (8.4-10.2); Carbon Dioxide 26 mmol/L (22-30); Chloride 107 mmol/L (98-107); Estimated Glomerular Filt Rate > 60; Glucose 97 mg/dL (65-110); Potassium 3.4 mmol/L (3.4-5.0); Sodium 140 mmol/L (137-145)
[2024-01-05 19:38] LABS: Prostate Specific Antigen 2.6 ng/mL (< OR = 4.0)
[2024-01-05 19:50] LABS: Basophils Percent Auto 0.5 % (0.2-1.2); Eosinophils Absolute Auto 0.1 K/mm3 (0-0.3); Hematocrit 40.4 % (42.0-52.0); Hemoglobin 13.2 g/dL (14.0-18.0); Immature Granulocyte Absolute 0.03 K/mm3 (0.00-0.031); Immature Granulocyte Percent A 0.4 % (0-0.5); Lymphocytes Absolute Auto 1.63 K/mm3 (0.9-3.2); Mean Corpuscular HGB Conc 32.7 g/dl (32-36); Mean Corpuscular Hemoglobin 29.9 pg (26-34); Mean Corpuscular Volume 91.4 fl (80-100); Mean Platelet Volume 10.1 fl (7.4-10.4); Monocytes Absolute Auto 0.6 K/mm3 (0.1-0.6); Monocytes Percent Auto 7.2 % (2.6-8.5); Neutrophils Absolute Auto 5.8 K/mm3 (1.3-6.7); Neutrophils Percent Auto 70.9 % (45.5-73.1); Platelet Count Result 324 k/mm3 (150-375); Red Blood Count 4.42 M/mm3 (4.6-6.20); Red Cell Distribution Width 13.4 % (11.5-14.5); White Blood Count 8.2 K/mm3 (4.5-10.0)
== END 2024-01-05 15:17 | disposition home or self-care (01) ==
PROVIDERS: PCP Internal Medicine; Visit Provider Internal Medicine
DX: D64.9 Anemia, unspecified (principal); E87.6 Hypokalemia; K59.00 Constipation, unspecified; R74.8 Abnormal levels of other serum enzymes; Z12.5 Encounter for screening for malignant neoplasm of prostate
CPT/HCPCS: 36415; 80053; 84153; 85025; G0103

== ENCOUNTER 2024-02-15 07:09 | Outpatient (RCR) | payer OTHER, SELFPAY | END 2024-02-18 23:59 | disposition home or self-care (01) | LOC: ANHWOC 07:09 | PROVIDERS: PCP Internal Medicine; Visit Provider Internal Medicine | DX: Z93.3 Colostomy status (principal) | CPT/HCPCS: 99213; G0463 ==

== ENCOUNTER 2024-02-22 14:49 | Outpatient (CLI) | payer OTHER, SELFPAY ==
[2024-02-22 19:35] LABS: Prostate Specific Antigen 1.6 ng/mL (< OR = 4.0)
== END 2024-02-22 14:50 | disposition home or self-care (01) ==
LOC: ANHGOSHLAB 14:50
PROVIDERS: PCP Internal Medicine; Visit Provider Internal Medicine
DX: R97.20 Elevated prostate specific antigen [PSA] (principal)
CPT/HCPCS: 36415; 84153

== ENCOUNTER 2024-03-29 14:05 | Outpatient (CLI) | payer OTHER, SELFPAY ==
[2024-03-29 20:24] LABS: Anion Gap 11 mmol/L (4-12); Blood Urea Nitrogen 21 mg/dL (9-20); Calcium 8.7 mg/dL (8.4-10.2); Carbon Dioxide 26 mmol/L (22-30); Chloride 102 mmol/L (98-107); Estimated Glomerular Filt Rate > 60; Glucose 95 mg/dL (65-110); Magnesium 1.9 mg/dL (1.6-2.3); Potassium 3.5 mmol/L (3.4-5.0); Sodium 139 mmol/L (137-145)
[2024-03-29 21:24] LABS: Folic Acid > 20.0 ng/mL (2.76->20); Vitamin B12 > 1000.0 pg/mL (239-931)
== END 2024-03-29 14:06 | disposition home or self-care (01) ==
LOC: ANHGOSHLAB 14:06
PROVIDERS: PCP Internal Medicine; Visit Provider Internal Medicine
DX: E87.6 Hypokalemia (principal); D64.9 Anemia, unspecified; E53.8 Deficiency of other specified B group vitamins
CPT/HCPCS: 36415; 80048; 82607; 82728; 82746; 83735

== ENCOUNTER 2024-05-16 07:07 | Outpatient (RCR) | payer OTHER, SELFPAY | END 2024-05-19 23:59 | disposition home or self-care (01) | LOC: ANHWOC 07:07 | PROVIDERS: PCP Internal Medicine; Visit Provider Internal Medicine | DX: Z93.3 Colostomy status (principal) | CPT/HCPCS: 36415; 80048; 82607; 82728; 82746; 83735; 84153; 99212; 99213; G0463 ==

== ENCOUNTER 2024-08-15 08:14 | Outpatient (RCR) | payer OTHER, SELFPAY | END 2024-08-18 23:59 | disposition home or self-care (01) | LOC: ANHWOC 08:14 | PROVIDERS: PCP Internal Medicine; Visit Provider Internal Medicine | DX: Z93.3 Colostomy status (principal) | CPT/HCPCS: 99213; G0463 ==

== ENCOUNTER 2024-08-26 12:44 | Emergency (ER) | payer OTHER, SELFPAY ==
--- NOTE | ~2024-08-26 | XR_ITS ---
XR chest 2V 08/26/2024 14:45 Indication: Dizziness Procedure: 2 view chest Comparison: Comparison to multiple prior studies sequentially, with oldest reviewed study dated 10/12. Findings: Heart size normal. Shallow inspiration. No focal air space disease, pulmonary edema, pleura l effusion or suspected pneumothorax. Impression: 1: No acute cardiopulmonary disease. Reviewed, dictated and finalized at location A. LITATION TRAINING SPECIALIST Impression: 1: No acute cardiopulmonary disease.
--- NOTE | ~2024-08-26 | CT_ITS ---
EXAMINATION: CT brain wo con DATE: 08/26/2024 14:51 INDICATION: Headache and dizziness TECHNIQUE: Computed tomography (CT) of the head was performed without intravenous contrast. Sagittal and coronal reconstructions were performed. The mA was adjusted according to patient size. Iterative reconstruction technique was employed. The dose-length product was 681.00 mGy-cm. COMPARISON: None FINDINGS: No acute intracranial hemorrhage, acute infarction or abnormal extra axial fluid collection. Symmetri c prominence of the sulci consistent with mild age-appropriate diffuse cerebral volume loss. Ventricl es are normal and symmetric. No mass/mass effect. Mild mucosal thickening the bilateral ethmoid sinus es. The orbits, paranasal sinuses and mastoid air cells are normal. IMPRESSION: 1. Normal aging brain. No acute intracranial process. Reviewed, dictated and finalized at location B. ILL PRODUCTION WORKER
--- OUTSIDE RECORDS SUMMARY | 2024-08-26 12:49 | XMS_ITS | CONTINUITY OF CARE DOCUMENT ---
Author Name virgil herman Address Unknown Organization [facility] Address [address] [place] [address] Phone [phone] Care Team Providers Care Solar Energy Consultant And Designer Name Role Phone virgil herman Unavailable Unavailable INSURANCE PROVIDERS Payer name Policy type / Coverage type Alligator red constitution party ID HEALTHCARE AND FAMILY SERVICES Medicaid 1 [id number] [place] Medicare [id number]
[2024-08-26 13:42] VITALS: BP 133/81; PULSE 88; RESP 20; TEMP 37.2; O2SAT 98
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
--- NOTE | 2024-08-26 14:30 | ECG_ITS ---
Test Date: 2024-08-26 14:35:30 Measurements Intervals [place] Rate: 90 P: 45 ND: 149 QRS: -32 QRSD: 92 T: 76 QT: 331 QTc: 405 Interpretive Statements SINUS RHYTHM POSSIBLE LEFT ATRIAL ENLARGEMENT [-0.1mV P WAVE IN V1/V2] MARKED LEFT AXIS DEVIATION [QRS AXIS < -30] LEFT VENTRICULAR HYPERTROPHY AND ST-T CHANGE [VOLTAGE CRITERIA PLUS ST/T ABNORMALITY] POSSIBLE SEPTAL MYOCARDIAL INFARCTION , PROBABLY OLD [30 ms Q WAVE IN V1/V2] No previous ECG available for comparison Electronically Signed On 08-26-2024 14:49:54 [employer]MI[employer] by Leslie Nixon M.D.
[2024-08-26 16:19] LABS: Basophils Percent Auto 0.2 % (0.2-1.2); Hematocrit 40.4 % (42.0-52.0); Hemoglobin 13.8 g/dL (14.0-18.0); Immature Granulocyte Absolute 0.02 K/mm3 (0.00-0.031); Immature Granulocyte Percent A 0.3 % (0-0.5); Lymphocytes Absolute Auto 0.47 K/mm3 (0.9-3.2); Lymphocytes Percent Auto 7.4 % (18.3-44.2); Mean Corpuscular HGB Conc 34.2 g/dl (32-36); Mean Corpuscular Hemoglobin 30.4 pg (26-34); Mean Platelet Volume 9.6 fl (7.4-10.4); Monocytes Absolute Auto 0.9 K/mm3 (0.1-0.6); Neutrophils Percent Auto 78.1 % (45.5-73.1); Platelet Count Result 251 k/mm3 (150-375); Red Blood Count 4.54 M/mm3 (4.6-6.20); Red Cell Distribution Width 13.5 % (11.5-14.5); White Blood Count 6.4 K/mm3 (4.5-10.0)
[2024-08-26 16:29] LABS: Alanine Aminotransferase 24 U/L (6-50); Albumin Level 4.3 g/dL (3.5-5.1); Alkaline Phosphatase 148 U/L (38-126); Anion Gap 15 mmol/L (4-12); Aspartate Amino Transferase 29 U/L (17-59); Bilirubin,Total 0.6 mg/dL (0.2-1.3); Blood Urea Nitrogen 21 mg/dL (9-20); Calcium 9.2 mg/dL (8.4-10.2); Carbon Dioxide 19 mmol/L (22-30); Chloride 106 mmol/L (98-107); Estimated Glomerular Filt Rate > 60; Glucose 126 mg/dL (65-110); Potassium 3.4 mmol/L (3.4-5.0); Sodium 140 mmol/L (137-145)
[2024-08-26 16:56] LABS: Influenza A QL RT-PCR Positive (Negative); Influenza B QL RT-PCR Negative (Negative); RSV RNA, RT-PCR Negative (Negative); SARS-CoV-2 RNA PCR Negative (Negative)
--- NOTE | 2024-08-26 20:27 | PC.NURSE ---
patient name called and no answer at this time. pt name called x3 times.
--- OUTSIDE RECORDS SUMMARY | 2024-08-26 20:37 | XMS_ITS | CONTINUITY OF CARE DOCUMENT ---
Author Name virgil herman Address Unknown Organization [facility] Address [address] [place] [address] Phone [phone] Care Team Providers Care Manager Assessment Name Role Phone virgil herman Unavailable Unavailable INSURANCE PROVIDERS Payer name Policy type / Coverage type [place] red alliance party ID HEALTHCARE AND FAMILY SERVICES Medicaid 1 [id number] [place] Medicare [id number]
== END 2024-08-26 22:03 | disposition left against medical advice (07) ==
LOC: ANHED 20:35
PROVIDERS: Emergency Provider Physician Assistant; PCP Internal Medicine
DX: J10.1 Influenza due to other identified influenza virus with other respiratory manifestations (principal); Z20.822 Contact with and (suspected) exposure to COVID-19; I10 Essential (primary) hypertension; E53.8 Deficiency of other specified B group vitamins; E78.00 Pure hypercholesterolemia, unspecified; D64.9 Anemia, unspecified; Z93.3 Colostomy status; V47.5XXA Car driver injured in collision with fixed or stationary object in traffic accident, initial encounter; I51.7 Cardiomegaly; R94.31 Abnormal electrocardiogram [ECG] [EKG]
CPT/HCPCS: 36415; 70450; 71046; 80053; 85025; 87637; 93005; 99284

== ENCOUNTER 2024-11-14 07:12 | Outpatient (RCR) | payer OTHER, SELFPAY | END 2024-11-17 23:59 | disposition home or self-care (01) | LOC: ANHWOC 07:12 | PROVIDERS: PCP Internal Medicine; Visit Provider Internal Medicine | DX: Z93.3 Colostomy status (principal) | CPT/HCPCS: 99213; G0463 ==

== ENCOUNTER 2024-12-06 14:09 | Outpatient (CLI) | payer OTHER, SELFPAY ==
--- OUTSIDE RECORDS SUMMARY | 2024-12-06 14:26 | XMS_ITS | CONTINUITY OF CARE DOCUMENT ---
Author Name virgil herman Address Unknown Organization [facility] Address [address] [place] [address] Phone [phone] Care Team Providers Care Building Services Technician Name Role Phone virgil herman Unavailable Unavailable INSURANCE PROVIDERS Payer name Policy type / Coverage type [place] red republican ID HEALTHCARE AND FAMILY SERVICES Medicaid 1 [id number] [place] Medicare [id number]
[2024-12-06 20:27] LABS: Alanine Aminotransferase 26 U/L (6-50); Albumin Level 4.1 g/dL (3.5-5.1); Alkaline Phosphatase 136 U/L (38-126); Anion Gap 9 mmol/L (4-12); Aspartate Amino Transferase 47 U/L (17-59); Bilirubin,Total 0.4 mg/dL (0.2-1.3); Blood Urea Nitrogen 21 mg/dL (9-20); Calcium 8.8 mg/dL (8.4-10.2); Carbon Dioxide 28 mmol/L (22-30); Chloride 106 mmol/L (98-107); Cholesterol 203 mg/dL (0-200); Estimated Glomerular Filt Rate > 60; Glucose 97 mg/dL (65-110); HDL Direct 50 mg/dL; Magnesium 1.9 mg/dL (1.6-2.3); Potassium 3.4 mmol/L (3.4-5.0); Sodium 143 mmol/L (137-145); Triglycerides 52 mg/dL (<150)
[2024-12-06 21:02] LABS: Prostate Specific Antigen 1.3 ng/mL (< OR = 4.0)
[2024-12-06 21:42] LABS: Hemoglobin A1C 5.1 % (<5.7)
[2024-12-06 22:40] LABS: LDL Cholesterol Direct 117 mg/dL
== END 2024-12-06 14:10 | disposition home or self-care (01) ==
LOC: ANHGOSHLAB 14:10
PROVIDERS: PCP Internal Medicine; Visit Provider Internal Medicine
DX: D64.9 Anemia, unspecified (principal); I10 Essential (primary) hypertension; R73.9 Hyperglycemia, unspecified; R97.20 Elevated prostate specific antigen [PSA]; E78.00 Pure hypercholesterolemia, unspecified; E53.8 Deficiency of other specified B group vitamins
CPT/HCPCS: 36415; 80053; 80061; 82172; 82728; 83036; 83735; 84153

== ENCOUNTER 2025-02-13 07:20 | Outpatient (RCR) | payer OTHER, SELFPAY | END 2025-02-16 23:59 | disposition home or self-care (01) | LOC: ANHWOC 07:20 | PROVIDERS: PCP Internal Medicine; Visit Provider Internal Medicine | DX: Z93.3 Colostomy status (principal) | CPT/HCPCS: 99213; G0463 ==

== ENCOUNTER 2025-05-15 07:12 | Outpatient (RCR) | payer OTHER, SELFPAY | END 2025-05-18 23:59 | disposition home or self-care (01) | LOC: ANHWOC 07:12 | PROVIDERS: PCP Internal Medicine; Visit Provider Internal Medicine | DX: Z93.3 Colostomy status (principal) | CPT/HCPCS: 99213; G0463 ==